=== PATIENT | female | born 1990 | race Caucasian/White ===

== ENCOUNTER 2024-03-25 00:03 | Inpatient (IN) | payer OTHER, SELFPAY ==
[2024-03-25 00:23] VITALS: BP 119/75; BMI 27.5
[2024-03-25] MEDS: LR 1000 IV ×2 (00:30→01:30)
[2024-03-25 00:35] LABS: % Basophils 0.3 % (0-2); % Eosinophils 0.5 % (0-6); % Lymphocytes 16.3 % (20.5-51.1); % Monocytes 5.5 % (1.7-9.3); % Neutrophils 76.4 % (42.2-75.2); Absolute Eosinophils 0.1 10^3/uL (0-0.7); Absolute Immature Granulocytes 0.1 10^3/uL (0-0.05); Absolute Lymphocytes 1.8 10^3/uL (1.2-3.4); Absolute Monocytes 0.6 10^3/uL (0.1-0.6); Absolute Neutrophils 8.5 10^3/uL (1.4-6.5); Hemoglobin 13.6 g/dL (12.0-16.0); Mean Corp Hgb Conc. 34.9 g/dL (33.0-37.0); Mean Corpuscular Volume 88.8 fL (81.0-99.0); Mean Platelet Volume 10.9 fL (7.4-10.4); Nucleated Red Blood Cells % 0 %; Platelet Count 209 10^3/uL (130-400); Red Blood Cell Count 4.39 10^6/uL (4.20-5.40); White Blood Cell Count 11.1 10^3/uL (4.8-10.8)
[2024-03-25] MEDS: SUBLIMAZE 100 MCG EPIDURAL (00:58)
[2024-03-25] MEDS: FENTANYL/BUPIVACAINE 100 EPIDURAL (00:58)
[2024-03-25] MEDS: PENICILLIN 110 UNITS IV (01:12)
[2024-03-25] MEDS: LR IV (01:15)
[2024-03-25] MEDS: MAALOX 30 ML PO (02:58)
[2024-03-25] MEDS: PITOCIN 30 UNITS/NSS 500 ML IV (03:22)
[2024-03-25] MEDS: PRENATAL PLUS 1 TABLET PO (08:05)
[2024-03-25] MEDS: MOTRIN 600 MG PO ×2 (11:19→19:37)
[2024-03-26] MEDS: MOTRIN 600 MG PO ×2 (04:04→11:29)
[2024-03-26 04:59] LABS: Hematocrit 34.4 % (37.0-47.0); Hemoglobin 11.7 g/dL (12.0-16.0)
[2024-03-26] MEDS: PRENATAL PLUS 1 TABLET PO (08:00)
[2024-03-29 15:31] LABS: Syphilis/T. pallidum Ab Reflex Negative (Negative)
== END 2024-03-26 13:35 | disposition home or self-care (01) | DRG 807 ==
LOC: LDRP 00:03
PROVIDERS: Obstetrics & Gynecology; ADMITTING PHYSICIAN Obstetrics & Gynecology; FAMILY PHYSICIAN Family Medicine
PROC: 0UQMXZZ Repair Vulva, External Approach (ICD-10-PCS; 2024-03-25)
PROC: 10907ZC Drainage of Amniotic Fluid, Therapeutic from Products of Conception, Via Natural or Artificial Opening (ICD-10-PCS; 2024-03-25)
PROC: 0HQ9XZZ Repair Perineum Skin, External Approach (ICD-10-PCS; 2024-03-25)
PROC: 10E0XZZ Delivery of Products of Conception, External Approach (ICD-10-PCS; 2024-03-25)
PROC: 4A1HXCZ Monitoring of Products of Conception, Cardiac Rate, External Approach (ICD-10-PCS; 2024-03-25)
DX: O99.824 Streptococcus B carrier state complicating childbirth (principal); Z37.0 Single live birth; O71.5 Other obstetric injury to pelvic organs; O70.0 First degree perineal laceration during delivery; Z3A.39 39 weeks gestation of pregnancy; O99.354 Diseases of the nervous system complicating childbirth; G43.909 Migraine, unspecified, not intractable, without status migrainosus
CPT/HCPCS: 36415; 85014; 85018; 85025; 86780; 86850; 86900; 86901